=== PATIENT | male | born 1970 | race Two or more races ===

== ENCOUNTER 2020-09-28 13:31 | Emergency (ER) | payer MEDICAID, OTHER ==
[~2020-09-28] VITALS: Ht 188 cm; Wt 81.6 kg
[2020-09-28] MEDS ORDERED: ASPirin 81 mg TAB PO ONE (13:45)
[2020-09-28 13:59] VITALS: BP 142/91
[2020-09-28 14:15] LABS: Basophils # (auto) 0 10 ^3/uL (0-0.2); Basophils % (auto) 0.2 % (0.0-2.0); Eosinophils # (auto) 0 10 ^3/uL (0-0.8); Eosinophils % (auto) 0.3 % (0.0-7.0); Hematocrit 42.2 % (41.0-53.0); Hemoglobin 14.9 g/dL (13.5-17.5); Lymphocytes # (auto) 2.1 10 ^3/uL (0.4-5.4); Lymphocytes % (auto) 15.9 % (10.0-50.0); Mean Corpuscular Hemoglobin 28.1 pg (28.0-32.0); Mean Corpuscular Hgb Conc. 35.3 g/dL (32.0-36.0); Mean Corpuscular Volume 79.7 fL (80.0-100.0); Monocytes # (auto) 0.8 10 ^3/uL (0-1.3); Monocytes % (auto) 6.1 % (0.0-12.0); Neutrophils # (auto) 10.1 10 ^3/uL (1.6-8.6); Neutrophils % (auto) 77.5 % (37.0-80.0); Nucleated Red Blood Cells % 0.1 %; Red Blood Cells 5.29 10^6/uL (4.5-5.90); Red Cell Distribution Width 14.5 % (11.8-14.3)
[2020-09-28 14:32] LABS: Albumin 3.8 g/dL (3.4-5.0); Anion Gap 4 (5-15); Blood Urea Nitrogen 12 mg/dL (7-18); Calcium 8.4 mg/dL (8.5-10.1); Carbon Dioxide 29 mmol/L (21-32); Chloride 108 mmol/L (98-107); Glucose 96 mg/dL (74-106); Potassium 4.3 mmol/L (3.5-5.1); Sodium 141 mmol/L (136-145)
[2020-09-28 14:37] LABS: Alanine Aminotransferase 40 U/L (16-61); Alkaline Phosphatase 100 U/L (45-117); Aspartate Aminotransferase 17 U/L (15-37); BUN/Creatinine Ratio 12.5; Bilirubin, Total 0.4 mg/dL (0.2-1.0); GFR African American 107 mL/min; GFR Non-African American 88 mL/min; Total Protein 7.6 g/dL (6.4-8.2)
[2020-09-28 15:10] LABS: Urine Bacteria NONE SEEN /hpf (None Seen); Urine Blood Negative /uL (Negative); Urine Specific Gravity 1.011 (1.001-1.035); Urine WBC <1 /hpf (0 - 3)
== END 2020-09-28 15:35 | disposition home or self-care (01) ==
LOC: ER 13:31
DX: R07.89 Other chest pain (principal); J40 Bronchitis, not specified as acute or chronic; I10 Essential (primary) hypertension; Z86.718 Personal history of other venous thrombosis and embolism
CPT/HCPCS: 36415; 71045; 80053; 81001; 84484; 85025; 93005